=== PATIENT | female | born 1980 | race Caucasian/White ===

== ENCOUNTER → 2022-09-09 | Outpatient (CLI) | payer OTHER ==
[~2022-09-09] MED LIST: ACHYD1T PO; DCS100C PO; IBP800T PO; NAPR-243 PO; PREN1TAB71 PO; T; T PO; estrodiol PO
== END ==
LOC: CARD 11:00
PROVIDERS: ATTEND Internal Medicine Cardiovascular Disease
DX: I07.1 Rheumatic tricuspid insufficiency (principal)
CPT/HCPCS: 93306

== ENCOUNTER → 2022-09-16 | Outpatient (CLI) | payer OTHER ==
[2022-09-16 09:50] VITALS: BP 112/68
--- NOTE | 2022-09-16 12:13 | Cardiology Stress Test Report ---
Stress Test Report Date of Procedure/Referring: Date of Procedure: Sep 16, 2022 PCP Dorota Carrillo MD Admitting Physician Admitting Physician: Attending Physician: Court Mehta MD Indications: Palp Baseline Heart Rate: 92 Baseline Blood Pressure: Blood Pressure Systolic: 112 Blood Pressure Diastolic: 68 Baseline EKG: Baseline EKG: NSR Summary/Conclusion: Summary: In summary, the patient started exercising with a baseline heart rate, blood pressure and EKG mentioned above Patient was able to exercise for a total of 7 minutes on Bharat protocol, METs 8.5 Maximum heart rate 167 Maximum blood pressure 200/109 Stress EKG, Minimal nondiagnostic changes Recovery EKG , Return to baseline Conclusion: 1. Good exercise tolerance for a total of 7 minutes on Bharat protocol, 8.5 METs, achieving 93 percent of maximum expected heart rate 2. Minimal nondiagnostic EKG changes with exercise returned to baseline during recovery 3. No arrhythmia was noted 4. Hypertensive response to exercise with peak blood pressure 200/109 return to baseline during recovery Copy Copies To 1: DOROTA CARRILLO MD, BASHAR J MD Sep 16, 2022 12:13
== END ==
LOC: CARD 10:00
PROVIDERS: ATTEND Internal Medicine Cardiovascular Disease
DX: R00.2 Palpitations (principal)
CPT/HCPCS: 93017